=== PATIENT | female | born 1990 | race Caucasian/White ===

== ENCOUNTER 2018-10-17 11:50 | Inpatient (IN) ==
[2018-10-17 12:29] LABS: URINE SOURCE VOIDED
[2018-10-17 12:43] LABS: BILIRUBIN URINE NEGATIVE (NEGATIVE); BLOOD URINE 1+ (NEGATIVE); CLARITY CLEAR (CLEAR); COLOR YELLOW; GLUCOSE URINE NEGATIVE (NEGATIVE); KETONE URINE 1+(Small) mg/dL (NEGATIVE); LEUKOCYTES URINE TRACE (NEGATIVE); NITRITE URINE NEGATIVE (NEGATIVE); PROTEIN URINE NEGATIVE (NEGATIVE); UROBILINOGEN URINE NORMAL
[2018-10-17] MEDS ORDERED: LR 3,000 ML ONE (13:07)
[2018-10-17] MEDS ORDERED: PITOCIN 30 UNITS/NS 30 UNIT/500 ML IV.SOLN ONE (13:07)
[2018-10-17] MEDS ORDERED: FENTANYL-BUPIV-NS 2 MCG-0.1% 200 ML EPIDURAL PRN (13:21)
[2018-10-17] MEDS ORDERED: PEPCID IV PRN (13:27)
[2018-10-17] MEDS ORDERED: STADOL IV PRN (13:27)
[2018-10-17] MEDS ORDERED: REGLAN PO ONE (13:27)
[2018-10-17] MEDS ORDERED: PEPCID PO PRN (13:27)
[2018-10-17] MEDS ORDERED: ZOFRAN IV PRN (13:27)
[2018-10-17] MEDS ORDERED: LR 500 ML IV ONE (13:27)
[2018-10-17] MEDS ORDERED: PEPCID PO ONE (13:27)
[2018-10-17] MEDS ORDERED: KEFZOL 1 GM/D5W 1 GM/50 ML IVPB IV PRN (13:27)
[2018-10-17] MEDS ORDERED: TYLENOL PO PRN (13:27)
[2018-10-17] MEDS ORDERED: PITOCIN 30 UNITS/NS 30 UNIT/500 ML IV.SOLN IV SCH ×2 (13:30→19:30)
[2018-10-17] MEDS ORDERED: SODIUM CHLORIDE 0.9% INJ SCH (13:30)
[2018-10-17] MEDS ORDERED: NAROPIN 0.2% INJ ONE (13:30)
[2018-10-17] MEDS: LR 1,000 ML IV SCH ×2 (13:40→14:09)
[2018-10-17 13:44] LABS: BASO# 0.03 X1000 (0.0-0.2); BASO% 0.2 % (0.0-0.8); EOS# 0.03 X1000 (0.0-0.7); EOS% 0.2 % (0.0-10.0); HEMATOCRIT 35.8 % (37.0-47.0); HEMOGLOBIN 11.8 g/dL (12.0-16.0); IMM GRAN# 0.04 X1000 (0.0-0.04); IMM GRAN% 0.3 % (0.0-0.5); LYMPH# 2.17 X1000 (1.2-3.4); LYMPH% 17.8 % (20.5-51.1); MCH 28.4 PG (27-31); MCV 86.3 FL (81-99); MONO# 0.62 X1000 (0.11-0.59); MONO% 5.1 % (1.7-9.3); MPV 11.5 FL (7.4-10.4); NEUT# 9.31 X1000 (1.4-6.5); NEUT% 76.4 % (42.2-75.2); PLT 249 X1000 (130-400); RBC 4.15 XMIL (4.2-5.4); RDW 14.3 % (11.5-14.5)
[2018-10-17] MEDS ORDERED: XYLOCAINE-MPF 1% INJ ONE (14:03)
[2018-10-17] MEDS ORDERED: MINERAL OIL ONE (14:04)
[2018-10-17 14:07] LABS: UR AMPHETAMINES QUAL NONE DETECTED (NONE DETECT); UR BARBITUATES QUAL NONE DETECTED (NONE DETECT); UR BENZODIAZEPIN QUAL NONE DETECTED (NONE DETECT); UR CANNABINOIDS QUAL NONE DETECTED (NONE DETECT); UR COCAINE QUAL NONE DETECTED (NONE DETECT); UR METHADONE QUAL NONE DETECTED (NONE DETECT); UR METHAMPHETAMINE QUAL NONE DETECTED (NONE DETECT); UR OPIATES QUAL NONE DETECTED (NONE DETECT); UR OXYCODONE QUAL NONE DETECTED (NONE DETECT); UR PCP QUAL NONE DETECTED (NONE DETECT); UR PROPOXYPHENE QUAL NONE DETECTED (NONE DETECT); UR TCA QUAL NONE DETECTED (NONE DETECT)
--- NOTE | 2018-10-17 16:33 | HISTORY AND PHYSICAL ---
CHIEF COMPLAINT: Abdominal pain. HISTORY OF PRESENT ILLNESS: The patient is a 28-year-old G 2, P 1-0-0-1 at 40 weeks and 4 days, who presents to Labor and Delivery with complaint of lower abdominal pain. The patient found to have regular contractions in early labor. The patient reports good movement. Denies leakage of fluid or vaginal bleeding. MEDICATIONS: vitamins. PAST MEDICAL HISTORY: Endometriosis and kidney stones. PAST SURGICAL HISTORY: Appendectomy and diagnostic laparoscopy. FAMILY HISTORY: Noncontributory. OBSTETRICAL HISTORY: One full-term vaginal delivery, complicated by kidney stones. GYNECOLOGICAL HISTORY: Denies STD history. Last menstrual period 01/06/2018. ALLERGIES: No known drug allergies. SOCIAL HISTORY: Denies tobacco, alcohol, or drug use. PHYSICAL EXAMINATION: VITAL SIGNS: Temperature 97.7 degrees, pulse rate 99, respiration rate 20, blood pressure 119/72, O2 saturation on room air 96%. Weight 83 kg, height 5 feet 5 inches, BMI 30. GENERAL: No acute distress. CARDIOVASCULAR: Regular rate and rhythm. Positive S1, S2. RESPIRATORY: Clear to auscultation bilaterally. ABDOMEN: Gravid, soft, nontender. EXTREMITIES: Negative calf tenderness. PELVIC: Sterile vaginal exam, 3 cm, 90% effaced, -2 vertex position. Electronic monitoring: Category 1 tracing. [place] contractions every 5 to 7 minutes. LABORATORY STUDIES: WBC 12.2, hemoglobin 11.8, hematocrit 35.8, platelets 249,000. Rh is negative. ASSESSMENT: The patient is a 28-year-old 2, para 1-0-0-1 at 40 weeks and 4 days who presents in early labor. PLAN: 1. Admit to Labor and Delivery. 2. Routine labs ordered. 3. GBS negative. 4. Epidural p.r.n. pain. 5. Estimated weight 8 pounds. 6. Anticipate vaginal delivery. 7. Plan to start Pitocin for augmentation of labor if no cervical change in 2 hours.
[2018-10-17] MEDS ORDERED: PITOCIN IM PRN (19:16)
[2018-10-17] MEDS ORDERED: BENADRYL PO PRN (19:16)
[2018-10-17] MEDS ORDERED: HYDROXYZINE IM PRN (19:16)
[2018-10-17] MEDS ORDERED: PERI MEDS (DERMOPLAST/NUPERCAINAL/TUCKS) MISC PRN (19:16)
[2018-10-17] MEDS ORDERED: CYTOTEC PO PRN (19:16)
[2018-10-17] MEDS ORDERED: M-M-R II VACCINE SUBQ ONE (19:16)
[2018-10-17] MEDS ORDERED: PERCOCET-5 PO PRN (19:16)
[2018-10-17] MEDS ORDERED: BENADRYL IV PRN (19:16)
[2018-10-17] MEDS ORDERED: XYLOCAINE-MPF 1% INJ PRN (19:16)
[2018-10-17] MEDS ORDERED: ATARAX PO PRN (19:16)
[2018-10-17] MEDS ORDERED: MINERAL OIL PO PRN (19:16)
[2018-10-17] MEDS ORDERED: BOOSTRIX VACCINE IM ONE (19:16)
[2018-10-17] MEDS ORDERED: AMBIEN PO PRN (19:16)
--- NOTE | 2018-10-17 19:16 | OB/GYN PROGRESS NOTE ---
Progress Note OB - . OB Progress Note: Vital Signs - 24 hr 10/17/18 12:19 10/17/18 15:41 Temperature 97.7 F 97.1 F L Pulse Rate 99 H 89 Respiratory Rate 20 16 Blood Pressure 119/72 121/71 O2 Sat by Pulse Oximetry 96 98 Laboratory Results - last 24 hr 10/17/18 10/17/18 10/17/18 11:55 12:55 12:55 WBC 12.20 H RBC 4.15 L Hgb 11.8 L Hct 35.8 L MCV 86.3 MCH 28.4 MCHC 33.0 RDW Std Deviation 14.3 Plt Count 249 MPV 11.5 H Immature Gran % (Auto) 0.3 Neut % (Auto) 76.4 H Lymph % (Auto) 17.8 L [place] % (Auto) 5.1 Eos % (Auto) 0.2 Baso % (Auto) 0.2 Immature Gran # (Auto) 0.04 Neut # (Auto) 9.31 H Lymph # (Auto) 2.17 [place] # (Auto) 0.62 H Eos # (Auto) 0.03 Baso # (Auto) 0.03 Urine Source VOIDED Urine Color YELLOW Urine Clarity CLEAR Urine pH 5.0 Ur Specific [place] 1.000 Urine Protein NEGATIVE Urine Ketones 1+(Small) A Urine Blood 1+ A Urine Nitrite NEGATIVE Urine Bilirubin NEGATIVE Urine Urobilinogen NORMAL Urine WBC TRACE A Urine Glucose NEGATIVE Urine Opiates Screen Ur Oxycodone Screen Urine Methadone Screen U Propoxyphene Qual Ur Barbituates Screen Ur Tricyclics Screen Ur Phencyclidine Scrn Ur Amphetamines Screen U Methamphetamines Scrn U Benzodiazepines Scrn Urine Cocaine Screen U Cannabinoids Screen RPR NON-REACTIVE 10/17/18 13:42 WBC RBC Hgb Hct MCV MCH MCHC RDW Std Deviation Plt Count MPV Immature Gran % (Auto) Neut % (Auto) Lymph % (Auto) [place] % (Auto) Eos % (Auto) Baso % (Auto) Immature Gran # (Auto) Neut # (Auto) Lymph # (Auto) [place] # (Auto) Eos # (Auto) Baso # (Auto) Urine Source Urine Color Urine Clarity Urine pH Ur Specific [place] Urine Protein Urine Ketones Urine Blood Urine Nitrite Urine Bilirubin Urine Urobilinogen Urine WBC Urine Glucose Urine Opiates Screen NONE DETECTED Ur Oxycodone Screen NONE DETECTED Urine Methadone Screen NONE DETECTED U Propoxyphene Qual NONE DETECTED Ur Barbituates Screen NONE DETECTED Ur Tricyclics Screen NONE DETECTED Ur Phencyclidine Scrn NONE DETECTED Ur Amphetamines Screen NONE DETECTED U Methamphetamines Scrn NONE DETECTED U Benzodiazepines Scrn NONE DETECTED Urine Cocaine Screen NONE DETECTED U Cannabinoids Screen NONE DETECTED RPR Delivery Note: of LVMI weighing 8 lbs and 11 ounces with apgars of 9 and 10 at 1 and 5 minutes respectively. Thick meconium. Nuchal cord x1, loose easily reduced. suctioned on the perineum. and then handed off to Nursery personell present for delivery. Placenta intact delivered spontaneously. Second degree midline laceration repaired with 2.0 chromic, 1% lidocaine for local anesthesia. No cervical lacerations noted. Estimated blood loss 200cc. Fundus firm, bleeding to a minimum. Patient tolerated procedure well, infant to nursery.
[2018-10-17] MEDS ORDERED: PITOCIN 20 UNITS/NS 20 UNITS/1,000 ML IV.SOLN IV SCH (19:30)
[2018-10-17] MEDS: PERICOLACE PO SCH (21:00)
[2018-10-18 07:28] LABS: BASO# 0.02 X1000 (0.0-0.2); BASO% 0.2 % (0.0-0.8); EOS# 0.03 X1000 (0.0-0.7); EOS% 0.2 % (0.0-10.0); HEMATOCRIT 33.4 % (37.0-47.0); HEMOGLOBIN 10.6 g/dL (12.0-16.0); IMM GRAN# 0.04 X1000 (0.0-0.04); IMM GRAN% 0.3 % (0.0-0.5); LYMPH# 1.91 X1000 (1.2-3.4); LYMPH% 15.3 % (20.5-51.1); MCH 27.5 PG (27-31); MCHC 31.7 g/dL (33-37); MCV 86.8 FL (81-99); MONO# 1.06 X1000 (0.11-0.59); MONO% 8.5 % (1.7-9.3); MPV 11.5 FL (7.4-10.4); NEUT# 9.44 X1000 (1.4-6.5); NEUT% 75.5 % (42.2-75.2); PLT 219 X1000 (130-400); RBC 3.85 XMIL (4.2-5.4); RDW 14.2 % (11.5-14.5)
[2018-10-18] MEDS ORDERED: EPIFOAM FOAM TOP PRN (08:38)
--- NOTE | 2018-10-18 09:26 | PROGRESS NOTE ---
DATE: 10/18/2018 PATIENT PROFILE: Ms. Newman is a 28-year-old, G 2, P 1-0-0-1, who is day 1 status post a spontaneous vaginal delivery at 40 weeks 4 days of an 8 pound 11 ounce male , Apgars 9 and 10 with EBL 200 mL. SUBJECTIVE: This morning, Ms. Newman has no complaints. She denies having received any p.o. pain medication. She is tolerating her diet without nausea and vomiting, ambulating without difficulty and not having any difficulty urinating. She states she is using her jori bottle which is helping with any associated pain with her perineal laceration. She denies any fever, chills, headache, chest pain, shortness of breath, or leg pain. She is attempting to breast feed her . At this time, she declines any control and prefers to follow up with her physician. OBJECTIVE: Vital signs: Temperature 97.2 degrees, pulse rate 83, respiratory rate 16, blood pressure 113/69, and O2 saturation 99% on room air. General: No acute distress. Alert, cooperative, sitting up in bed. HEENT: Head atraumatic and normocephalic. Heart: Regular rate and rhythm. No murmurs, rubs, gallops or clicks. Lungs: Clear to auscultation bilaterally. No adventitious breath sounds. Abdomen: abdomen with normoactive bowel sounds. Soft and nontender to palpation. Fundus is firm and at the height of the umbilicus. Pelvis: Normal external genitalia with scant lochia on the pad. RN evaluated perineum and noted that they were hemorrhoids. Extremities: No cyanosis noted. No edema and negative Homans sign bilaterally. LABORATORY: CBC: WBCs 12.5, hemoglobin 10.6, hematocrit 33.4, platelets 219. X-RAYS: No new imaging. ASSESSMENT: A 28-year-old, G 2, P 2-0-0-2 at 40 weeks 4 days, status post a spontaneous vaginal delivery, currently day 1 now with hemorrhoids 1. Routine care. -Continue pain management with ibuprofen and [place] p.r.n. -The patient is breast feeding. -Encourage ambulation. -The patient will follow up with primary OB for contraception. -Desires circ for male who will be 24 hours in early evening 2. Hemorrhoids - Epifoam ordered cc: Summer Gabriel MD MTDD
[2018-10-18] MEDS: MOTRIN PO PRN ×2 (12:06→20:28)
[2018-10-18] MEDS: PERICOLACE PO SCH (20:28)
[2018-10-19 23:45] VITALS: BP 118/77
--- NOTE | 2018-10-20 07:01 | DISCHARGE SUMMARY ---
ADMISSION DATE: 10/17/2018 DISCHARGE DATE: 10/19/2018 ADMISSION DIAGNOSIS: Intrauterine 40 and 4/7 weeks in active labor. FINAL DIAGNOSIS: Intrauterine 40 and 4/7 weeks in active labor with vaginal delivery of a male infant, 8 pounds 11 ounces with Apgars of 9 and 10 at 18:52 on 10/17/2018. PROCEDURE: Spontaneous vaginal delivery. BRIEF HISTORY: The patient is a 28-year-old white female, G2, P1, at 40 and 4/7 weeks who presents to labor delivery with the complaint of lower abdominal pain and previously had contractions earlier in the day. Reports good movement. MEDICATIONS: vitamins. PAST MEDICAL HISTORY: Significant for endometriosis as well as nephrolithiasis. PAST SURGICAL HISTORY: Appendectomy and diagnostic laparoscopy. FAMILY HISTORY: Noncontributory. OBSTETRICAL HISTORY: G2, P1 spontaneous vaginal delivery x1. GYNECOLOGICAL HISTORY: Last menstrual period 01/06/2018. ALLERGIES: No known drug allergies. SOCIAL: No tobacco use. No alcohol use. PERTINENT FINDINGS ON PHYSICAL EXAM: Vital Signs: Temp 97.7 degrees, pulse of 99, respirations 20, blood pressure 119/72, height 5 feet 5 inches, weight 83 kg. Pelvic: Cervix was 3 cm dilated, 90% effaced, -2 station. heart rate was category 1 tracing with contractions noted every 5 to 7 minutes. HOSPITAL COURSE: The patient had epidural placed and had a spontaneous vaginal delivery. Male infant, 8 pounds 11 ounces, Apgars of 9 and 10 at 18:52 on 10/17/2018 with second-degree midline episiotomy with repair. The patient's course was unremarkable. She had good stable vital signs, was afebrile. Her hemoglobin was 10.6, hematocrit 33.4. Patient had stable vital signs and was afebrile and was also working on breast-feeding. On day 2, it is felt the patient could be discharged home. DISCHARGE INSTRUCTIONS: Patient be discharged home. Follow up in 6 weeks for check. Patient given pelvic rest for 6 weeks, lifting precautions. Pacing in will be given prescriptions and instructed on pelvic rest for 6 weeks. DISCHARGE MEDICATIONS: [place] 5 dispensed 20 with no refills, Colace 100 mg dispensed 30 with 1 refill, Motrin 800 mg, and iron sulfate. cc: Yobany Hsu III, MD
== END 2018-10-19 23:45 | disposition home or self-care (01) | DRG 806 ==
LOC: P.OPLD 11:50 → P.LD 11:53
PROVIDERS: ADMIT Obstetrics & Gynecology; ATTEND Obstetrics & Gynecology
CPT/HCPCS: 36415; 80104; 80301; 80305; 81003; 85025; 85461; 86592; 86900; 86901; A9270; G0431; G0434; G0477; J0595; J2405; J2590; J2790; J2795; J7120